=== PATIENT | male | born 1960 | race Caucasian/White ===

== ENCOUNTER → 2024-06-11 11:21 | Outpatient (REF) | payer OTHER, SELFPAY | LOC: HWRCS 11:21 | PROVIDERS: ATTENDING PHYSICIAN Student in an Organized Health Care Education/Training Program; FAMILY PHYSICIAN Family Medicine | DX: R01.1 Cardiac murmur, unspecified (principal) | CPT/HCPCS: 93306 ==

== ENCOUNTER → 2024-06-26 06:50 | Day surgery (SDC) | payer OTHER, SELFPAY ==
[2024-06-26 07:57] VITALS: BMI 22.4
== END ==
LOC: CATH 06:50
PROVIDERS: ATTENDING PHYSICIAN Internal Medicine Cardiovascular Disease; FAMILY PHYSICIAN Family Medicine; OTHER PHYSICIAN Student in an Organized Health Care Education/Training Program
DX: I34.0 Nonrheumatic mitral (valve) insufficiency (principal); E78.5 Hyperlipidemia, unspecified; Q21.12 Patent foramen ovale; Z87.891 Personal history of nicotine dependence
CPT/HCPCS: 93312; 93320; 93325

== ENCOUNTER 2024-07-11 06:11 | Day surgery (SDC) | payer OTHER, SELFPAY ==
[2024-07-11] VITALS (11 sets, daily range): BP systolic 130–155; BP diastolic 82–120; BMI 23.0
--- NOTE | 2024-07-11 18:00 | ITS.CL.PN ---
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
Procedure
Procedure Note:
CARDIAC CATHETERIZATION REPORT
Date of Procedure: 07-11-2024
Referring: Dr. Sanya Hurst MD
Indication: Preop evaluation for MVR
PROCEDURE(S)
1. left heart catheterization
2. coronary angiography
ACCESS: 6F right radial artery (closure: radial band)
CATHETERS
1. 6F JL3.5
2. 6F JR4
HEMODYNAMIC DATA
LV 115/8 (EDP 17) mmHg
AO 113/75 (mean 88) mmHg
CORONARY ANGIOGRAPHY
Dominance: right
LM: Large, normal
LAD: Large vessel giving rise to a moderate caliber D1, moderate caliber D2, and small D3. There is no coronary artery disease.
LCx: Large vessel giving rise to a large OM1, small OM2, small OM3, and large LPL branch. There is no coronary artery disease.
RCA: Large vessel giving rise to a large RPDA and moderate caliber RPL1. There is no coronary artery disease.
RADIATION: dose 218 mGy; DAP 16.7 Gy*cm2; fluoroscopy time 3.3 min
CONCLUSIONS
1. no coronary artery disease in a right dominant system.
2. mildly elevated LV filling pressure with no gradient across the aortic valve.
RECOMMENDATIONS
1. expectant management after cardiac catheterization via right radial approach
2. proceed with workup for MVR
3. primary prevention of coronary artery disease
Copy to: Dr. Sanya Hurst MD (cardiothoracic surgeon); Dr. Torey Cotto MD (PCP)
Signed: Barrera Johnson MD, PhD
== END 2024-07-11 11:45 | disposition home or self-care (01) ==
LOC: CATH 06:11
PROVIDERS: ATTENDING PHYSICIAN Student in an Organized Health Care Education/Training Program; FAMILY PHYSICIAN Family Medicine; OTHER PHYSICIAN Student in an Organized Health Care Education/Training Program
DX: I34.0 Nonrheumatic mitral (valve) insufficiency (principal); E78.00 Pure hypercholesterolemia, unspecified; Z87.891 Personal history of nicotine dependence
CPT/HCPCS: 93458; C1769; C1894; Q9967

== ENCOUNTER → 2024-07-14 07:45 | Outpatient (REF) | payer OTHER, MEDICARE, SELFPAY | LOC: RAD 07:45 | PROVIDERS: ATTENDING PHYSICIAN Thoracic Surgery (Cardiothoracic Vascular Surgery); FAMILY PHYSICIAN Family Medicine | DX: Z01.810 Encounter for preprocedural cardiovascular examination (principal); I34.0 Nonrheumatic mitral (valve) insufficiency | CPT/HCPCS: 71275; 74174; Q9967 ==

== ENCOUNTER 2024-07-15 05:02 | Inpatient (IN) | payer OTHER, MEDICARE, SELFPAY ==
[2024-07-04 08:07] VITALS: BMI 23.2
[2024-07-04 08:50] LABS: Urine Albumin Negative (Neg - Trace); Urine Bilirubin Negative (Negative); Urine Character Clear (Clear); Urine Color Yellow; Urine Glucose Negative (Negative); Urine Ketone Negative (Negative); Urine Leukocyte Trace (Negative); Urine Nitrite Negative (Negative); Urine Occult Blood Negative (Negative); Urine Urobilinogen Negative (Neg - 1+)
[2024-07-04 08:54] LABS: % Basophils 0.7 % (0-2); % Eosinophils 1.5 % (0-6); % Immature Granulocytes 0.2 % (0-0.5); % Lymphocytes 37.3 % (20.5-51.1); % Monocytes 9.3 % (1.7-9.3); Absolute Eosinophils 0.1 10^3/uL (0-0.7); Absolute Lymphocytes 2.2 10^3/uL (1.2-3.4); Absolute Monocytes 0.6 10^3/uL (0.1-0.6); Absolute Neutrophils 3.1 10^3/uL (1.4-6.5); Hematocrit 42.7 % (39.0-52.0); Hemoglobin 14.8 g/dL (13.0-18.0); Mean Corp Hgb Conc. 34.7 g/dL (33.0-37.0); Mean Corpuscular Hgb 31.8 pg (27.0-31.0); Mean Corpuscular Volume 91.6 fL (80.0-94.0); Mean Platelet Volume 10.3 fL (7.4-10.4); Nucleated Red Blood Cells % 0 % (-); Platelet Count 200 10^3/uL (130-400); Red Blood Cell Count 4.66 10^6/uL (4.70-6.10); Red Cell Dist. Width 12.9 % (11.5-14.5)
[2024-07-04 08:57] LABS: INR 0.87; PT 12.2 Sec (11.4-14.6)
[2024-07-04 08:58] LABS: APTT 26.9 Sec (23.4-35.0)
[2024-07-04 09:07] LABS: ALT (SGPT) 32 U/L (0-50); AST (SGOT) 27 U/L (17-59); Albumin 4.7 g/dl (3.5-5.0); Alkaline Phosphatase 64 U/L (38-126); Blood Urea Nitrogen 19 mg/dl (9-20); Carbon Dioxide 28 mmol/L (22-30); Chloride 102 mmol/L (98-107); Direct Bilirubin 0.1 mg/dl (0.0-0.4); Estimated Creatinine Clearance 72 ml/min; Glucose 101 mg/dl (70-99); Potassium 4.3 mmol/L (3.5-5.1); Sodium 139 mmol/L (135-145); Total Bilirubin 0.8 mg/dl (0.2-1.3); eGFR > 60.00
--- NOTE | 2024-07-04 09:30 | CM ---
Chart reviewed. Met with the patient and his in PAT. Reviewed preoperative and postoperative instructions and restrictions, along with showering guidelines. Gave patient 2 soaps. Patient is agreeable to a visit by CT Transitional RN.
Patient is independent of ADLS, lives with his in a 2 S[place], 2 [place], 0 DME. Plan is for the patient to return home with CT Transitional RN.
[2024-07-04 09:47] LABS: Urine Squamous Cell 0-2 /LPF (Few)
[2024-07-04 09:48] LABS: Urine Amorphous Seen; Urine Urothelial Cell 0-2 /LPF (FEW)
[2024-07-04 09:49] LABS: Urine Red Blood Cell 0-2 /HPF (0-2)
[2024-07-04 10:02] LABS: Glycohemoglobin (HgbA1c) 5.1 % (4.0-5.6)
[2024-07-15] VITALS (46 sets, daily range): BP systolic 75–158; BP diastolic 53–90; PULSE 2–82; BMI 22.9
[2024-07-15] MEDS: LOPRESSOR 25 MG PO (05:23)
[2024-07-15] MEDS: BACTROBAN 2% OINTMENT 1 APPLIC NASAL ×2 (05:23→21:24)
[2024-07-15] MEDS: MAGNESIUM OXIDE 500 MG PO (05:23)
[2024-07-15] MEDS: PROTONIX 40 MG PO (05:23)
--- NOTE | 2024-07-15 05:30 | PTCARENOTE ---
pt admitted into room 2263. VS and weight obtained. pt confirms 2 showers @ home and NPO since midnight. admission questions and med rec completed. ABO drawn and sent. clip prep and CHG cloth bath done. pre-op meds given. @ bedside.
--- NOTE | 2024-07-15 06:03 | W.CVOR.SURPR ---
CVOR Surgeon Immed Pre Op
-
I have examined this patient prior to performance of the scheduled procedure.
The patient's condition is unchanged from the time of the dictated/written History and
Physical and the patient is able to undergo the scheduled procedure.
MV repair, PFO closure, +/- RAJWINDER Clip
[2024-07-15 07:16] LABS: ACT+ - POC 107 Seconds (82-134)
[2024-07-15 07:50] LABS: Urine Albumin Negative (Neg - Trace); Urine Bilirubin Negative (Negative); Urine Character Clear (Clear); Urine Color Straw; Urine Glucose Negative (Negative); Urine Ketone Negative (Negative); Urine Leukocyte Negative (Negative); Urine Nitrite Negative (Negative); Urine Occult Blood Negative (Negative); Urine Specific Gravity 1.015 (<1.030); Urine Urobilinogen Negative (Neg - 1+)
--- NOTE | 2024-07-15 09:16 | CM ---
pt in OR today, cm to follow
[2024-07-15 09:23] LABS: B.E. - POC 1.2 mmol/L; Glucose - POC 104 mg/dl (70-99); HCO3 - POC 26 mmol/L (21-28); Hematocrit - POC 38 % PCV (42-52); Hemodilution- POC Yes; Hemoglobin Calculated - POC 12.8; Ionized Calcium - POC 1.24 mmol/L (1.15-1.33); PCO2 - POC 38 mmHg (35-48); PO2 - POC 545 mmHg (83-108); POC Comment PRE; Potassium - POC 3.4 mmol/L (3.5-5.1); Sodium - POC 143 mmol/L (136-145); Specimen Type - POC Arterial; pH - POC 7.43 (7.35-7.45)
[2024-07-15 09:55] LABS: B.E. - POC 2.1 mmol/L; Glucose - POC 224 mg/dl (70-99); HCO3 - POC 27 mmol/L (21-28); Hematocrit - POC 32 % PCV (42-52); Hemodilution- POC Yes; Hemoglobin Calculated - POC 10.9; Ionized Calcium - POC 1.09 mmol/L (1.15-1.33); O2 Saturation %Calculated-POC 99.8 % (94-98); PCO2 - POC 45 mmHg (35-48); PO2 - POC 215 mmHg (83-108); POC Comment CPB; Potassium - POC 5.3 mmol/L (3.5-5.1); Sodium - POC 138 mmol/L (136-145); Specimen Type - POC Arterial
[2024-07-15 10:15] LABS: ACT+ - POC 995 Seconds (82-134)
[2024-07-15 10:18] LABS: B.E. - POC 0.9 mmol/L; Glucose - POC 202 mg/dl (70-99); HCO3 - POC 27 mmol/L (21-28); Hematocrit - POC 41 % PCV (42-52); Hemodilution- POC Yes; Hemoglobin Calculated - POC 13.8; Ionized Calcium - POC 1.17 mmol/L (1.15-1.33); O2 Saturation %Calculated-POC 97.9 % (94-98); PCO2 - POC 50 mmHg (35-48); PO2 - POC 110 mmHg (83-108); POC Comment CPB; Potassium - POC 4.2 mmol/L (3.5-5.1); Sodium - POC 140 mmol/L (136-145); Specimen Type - POC Arterial; pH - POC 7.35 (7.35-7.45)
[2024-07-15 10:43] LABS: ACT+ - POC 896 Seconds (82-134)
[2024-07-15 10:55] LABS: B.E. - POC -2.8 mmol/L; Glucose - POC 143 mg/dl (70-99); HCO3 - POC 25 mmol/L (21-28); Hematocrit - POC 41 % PCV (42-52); Hemodilution- POC Yes; Hemoglobin Calculated - POC 13.9; O2 Saturation %Calculated-POC 99.9 % (94-98); PCO2 - POC 55 mmHg (35-48); PO2 - POC 315 mmHg (83-108); POC Comment WARM; Potassium - POC 4.3 mmol/L (3.5-5.1); Sodium - POC 142 mmol/L (136-145); Specimen Type - POC Arterial; pH - POC 7.27 (7.35-7.45)
[2024-07-15 11:04] LABS: ACT+ - POC 131 Seconds (82-134)
[2024-07-15 11:08] LABS: B.E. - POC -1.5 mmol/L; Glucose - POC 98 mg/dl (70-99); HCO3 - POC 24 mmol/L (21-28); Hematocrit - POC 34 % PCV (42-52); Hemodilution- POC Yes; Hemoglobin Calculated - POC 11.7; Ionized Calcium - POC 1.39 mmol/L (1.15-1.33); PCO2 - POC 44 mmHg (35-48); PO2 - POC 95 mmHg (83-108); POC Comment POST; Potassium - POC 3.9 mmol/L (3.5-5.1); Sodium - POC 142 mmol/L (136-145); Specimen Type - POC Arterial; pH - POC 7.35 (7.35-7.45)
--- NOTE | 2024-07-15 11:28 | W.PN.CT.SURG ---
CT Surgery Operative Note
-
CARDIAC SURGERY OPERATIVE REPORT
Preoperative Diagnosis: Myxomatous mitral valve degeneration with severe insufficiency
Postoperative Diagnosis: Same
Procedure(s) Performed:
1. Right mini thoracotomy with left femoral artery and right femoral vein cannulation under LOLLY guidance (initial attempt at percutaneous right common femoral artery cannulation but unable to thread the wire and so this was aborted)
2. Radical mitral valve repair (34 mm band annuloplasty, triangular resection of P2 flail segment, single [place]-Pee suture placed to reinforce the P2 scallop)
3. Placement temporary ventricular pacing wires
4. Trans esophageal echocardiography
5. Left atrial appendage exclusion [35 mm clip]
6. PFO [ASD] closure done primarily
7. Anesthesia regional block performed preoperatively
Date of Surgery: 07/15/24
Comorbidities:
1. 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
2. Gout
3. Hyperlipidemia
4. Colonic polyp
Attending Surgeon: Sanya Hurst MD, MS
Assistants: Sepideh Duong PA-C (present and necessary for retraction, suctioning, exposure, suture management, wound closure, etc. under my direction)
Anesthesiology: Jatinder Baxter MD and Constantin Torres CRNA
Scrub and Circulating RNs: Dorys Tello RN, Nathan Christianson RN
Roofer Apprentice: Sepideh Hull CCP
Anesthesia: GETA
EBL: per perfusion records
Products: None
CPB Time: 94 minutes
Aortic Cross Clamp Time: 74 minutes
Indication(s) for Procedures: This is an otherwise healthy 64-year-old male who underwent a cardiology workup for a murmur. On closer inspection with a transesophageal echocardiogram he had a flail segment with multiple torn cords of his posterior
leaflet as well as some prolapse of the P2 scallop. This resulted in severe mitral valve insufficiency that was eccentric scarring along the anterior leaflet. Although he was asymptomatic, he desired to have his valve corrected and understood that
he was a IIa indication. Informed consent was obtained to proceed with surgery.
Mitral Valve Description: Significant prolapse of the P2 scallop with annular dilatation. There was a flail segment with multiple torn cords at the free margin of the P2 scallop.
Implants:
1. 34 mm Smith physio flex annuloplasty band, SN [id number]
2. 35 mm pro V clip, serial #[id number]
3. CV 4 Goretex
4. Multiple 5-0 Prolenes
Specimen:
1. P2 scallop flail segment
Findings: His left ventricular ejection fraction preoperatively 65% with no significant regional wall motion abnormalities. His LV was mildly dilated, his left atrium was moderately dilated, his mitral valve had severe insufficiency with a very
large piece of over 1 cm with an eccentric jet directed towards the anterior leaflet with a large Coanda effect. Following surgery his EF remained the same at 65% with no significant new regional wall motion abnormalities. His mitral valve was
repaired with a 34 band annuloplasty secured into place with 13 nonpledgeted 2 Ethibond sutures with core knots. The P2 scallop was resected in a triangular fashion and reapproximated with multiple interrupted 5-0 Prolene. A single CV 4 [place]-Pee
cord was placed from the posterior medial papillary muscle head to the free margin of the remaining P2 scallop. Dynamic inflation and pressurization of the left ventricle revealed good coaptation height and no residual mitral valve insufficiency.
With the left atrial lift removed, the left atrial appendage was viewed across the transverse sinus and sized to a 35 mm clip which was deployed flush to the base. At the conclusion of the case off cardiopulmonary bypass there is no residual left
atrial appendage flow, his mitral valve had no residual insufficiency, the mean gradient across the mitral valve was 1 mmHg, and he had no systolic anterior motion of the leaflets. He had trace aortic valve insufficiency which was there
preoperatively. He did not require any inotropic support, cardiac index was well over 2 on low-dose Levophed. No blood products were given
Description of Procedure: The patient was brought to the operating room and placed supine in the table with their right side bumped up and right arm down. Arterial and central access was performed by anesthesiology. The patient was prepped from chin
to toes in the typical sterile fashion. Trans esophageal evaluation of cardiac function and all valvular structures was conducted. Before commencing, a time out was performed by all members of the team. All were in agreement with the procedure and
laterality and I proceeded. I initially attempted to obtain ultrasound-guided Seldinger technique access to the right common femoral artery which was successful. However after deployment of the Perclose and placement of the 8 Maori sheath, we
lost access to this groin and so the Perclose's were deployed and cinched down. The right common femoral vein was accessed percutaneously without issues. A small left groin incision was made to expose the common femoral artery. A total of
40,000units of heparin was given. A 5-6 cm right lateral thoracotomy was performed over the 4th intercostal space verified by visualization of the hilum. The common femoral artery and vein were cannulated under transesophageal guidance using open
Seldinger technique. The arterial line was verified to have an appropriate bounce and pressure correlating with testing. Once the ACT was above 400, retrograde autologous priming was done and we commenced cardiopulmonary bypass. Target core
temperature was 34�C.
Carbon dioxide was used to flood the field. The course of the phrenic nerve was identified to prevent injury. The pericardium was opened and two stay sutures were placed to facilitate a ``pericardial table.�� The oblique sinus was developed followed
by the inter atrial groove. An antegrade root vent was inserted and secured with a pursestring suture. The pump flow and mean arterial pressure were lowered and an aortic cross clamp was applied to the ascending aorta. A total of 1.2L initial dose
of Antegrade cardioplegia was delivered. We had rapid electro myocardial quiescence at 250 cc of cardioplegia. The ventricle was monitored for distension by echocardiogram during this time. The left atrium was incised and enlarged. A left atrial
lift retractor was placed. The mitral valve was inspected. The mitral valve was repaired as described above. At this point the left atrial lift was removed and the left atrial appendage was viewed across the transverse sinus and clipped with a 35mm
clip. The left atriotomy was closed with 3-0 prolene in a running fashion leaving a ventricular vent in place to de-air. After filling the heart, the vent was removed and the prolene was secured with a corknot. Unipolar ventricular pacing wire was
placed on the base of the right ventricle. The patient was placed into Trendelenburg position and pump flows were lowered. The clamp was slowly removed with the root vent turned on. De-airing maneuvers were performed. We started to rewarm with a
target of 36.5�C.
As the heart recovered, the mitral valve and ventricular function were assessed under transesophageal echocardiogram. The LV vent and root vents were removed. Once weaning parameters were satisfactory, cardiopulmonary bypass flow was lowered until
we were off cardiopulmonary bypass the mitral valve was inspected again. All surgical sites were inspected for hemostasis and appeared appropriate. The lines were clamped and the arterial was relocated to the venous cannula to give back volume. A
test dose of protamine was delivered and patient was monitored for any adverse reactions followed by complete protamine dosing. The femoral vessels were decannulated and repaired as indicated. One 19F Vinh drain remained in the pleural space and
threaded into the pericardium. There was an excellent palpable distal to the FACTORY HAND cannulation site and the pedal pulses were verified under Doppler. Local analgesia was injected to the thoracotomy. The incision was closed in layers in a running
fashion.
All instrument, sponge, and needle counts were confirmed to be correct x 2 at the end of the operation. The patient was transferred to the cardiac intensive care unit, extubated, in critical but stable condition.
I, Dr. Sanya Hurst, was present, scrubbed for, and performed all critical elements of this procedure.
Sanya Hurst MD, MS
Cardiothoracic Surgeon
[facility]
This dictation was created using the [employer] dictation system. Please excuse any grammatical, typographical, or 'sound alike' errors
--- NOTE | 2024-07-15 11:45 | PTCARENOTE ---
Dayshift: Received pt to CVICU @ 1145 pt extubated, on insulin, levo, and precedex. MVR with RAJWINDER clip. [place] @ 47. A-wires present but not connected. L radial A-line zeroed and calibrated. R plueral c/t draining serosanguineous fluid, WNL. Lungs
clear, diminished in bases. Pt placed on BiPap for low inspiration. NSR on monitor HR 80's, B/P 94/65. Pulses palpable, - edema. Hypoactive BS, Shepard draining clear yellow fluid WNL. Right Chest incision approximated with sternal glue present. R
groin retention suture in place. no edema or ecchymosis noted. L groin incision approximated. Sternal glue present.
--- NOTE | 2024-07-15 11:54 | W.PN.UPDATE ---
Update Note
Progress Note Update
64-year-old male was electively admitted on 07/15/2024 for mitral valve repair due to severe non-rheumatic MR.
IV fluids: 1200
Blood:� none
Wires:� v-wire
Inotropes:� none
Pressors:� Levophed @ 4
Sedatives:� none
�
NEURO: somnolent, extubated in OR, pupils +2mm B/L
RESP: Clear BS B/L. 2 mediastinal (0cc on arrival) chest tubes to -20cm suction.
CV: RRR +S1, S2, no S3, no�rub, no murmur. Dermabond to right anterior mini-thoracotomy. RIJ w/[place] locked @ 47cm. PA ; CVP 7
ABD: round, soft, no BS
EXT: no edema, +2/4 DP pulses B/L, no femoral bruit, left radial A-line intact, Perclose to right femoral artery-no hematoma, Left femoral cannulation site intact w/o hematoma
: Shepard with clear yellow urine
�
A/P: POD #0 s/p radical mitral valve repair (#34 mm band annuloplasty, triangular resection of P2 flail segment, single [place]-Pee suture placed to reinforce the P2 scallop), left atrial appendage exclusion [#35 mm clip], primary PFO [ASD] closure
LOLLY: report pending
- will need instruction regarding antibiotic prophylaxis for dental and invasive procedures
- cut pacing wires if no pacing requirements on POD #3
# Acute hypercarbic respiratory failure (CO2 65) s/p extubation in OR
- BPAP (/), wean to nasal cannulae as awakens
�
# acute surgical blood loss anemia-expected
- trend CBC
�
# Hyperlipidemia
- resume�Lipitor 20mg daily
[2024-07-15 11:57] LABS: Glucose - Point of Care 109 mg/dl (70-99)
[2024-07-15 12:02] LABS: Hematocrit 35.4 % (39.0-52.0); Hemoglobin 12.2 g/dL (13.0-18.0); Platelet Count 142 10^3/uL (130-400)
[2024-07-15 12:04] LABS: B.E. -2.3 mmol/L; HCO3 26.6 mmol/L (21-28); Ionized Calcium 1.39 mMOL/L (1.15-1.33); O2 Saturation % 98.8 % (94-98); PCO2 65 mmHg (35-48); PO2 104 mmHg (83-108); Potassium 3.8 mMOL/L (3.5-5.1); Sodium 138 mMOL/L (136-145); pH 7.22 (7.35-7.45)
[2024-07-15 12:07] LABS: Mixed Venous O2 Saturation 81.7 %
--- NOTE | 2024-07-15 12:12 | CON.INTV ---
Consultation
Consultation Request
Date/Time Consultation Requested: 07/15/2024
Date/Time Consultation Performed: 07/15/2024
Requesting Provider: Dr. Hurst
Performing Provider: Dr. Eb Fitzpatrick
Reason for Consultation: Status post mitral valve repair
Medical History
-
History of Present Illness:
64-year-old man with past medical history noted significant for severe MR, evaluated in the outpatient and he was deemed candidate for repair. Underwent mitral valve repair on 07/15/2024 without complication.
ECW records reviewed.
Patient tolerated surgery. Currently on noninvasive mechanical ventilation. Alert, following commands.
Hemodynamically relatively stable on low-dose Levophed.
Chest tube in place without significant output or air leak.
Past Medical History
Past Medical History: Other (See assessment and plan)
Social History
Tobacco: Non-smoker
Alcohol: None
Drug: None
Family History
Family History: Unable to Obtain
Allergies / Home Medications
Allergies
Allergy/AdvReac Type Severity Reaction Status Date / Time
No Known Allergies Allergy Verified 07/11/24 07:06
Home Medications
�Medication �Instructions �Recorded �Confirmed �Last Taken �Type
atorvastatin 40 mg tablet 20 mg PO DAILY 06/26/24 07/15/24 07/14/24 09:00 History
cholecalciferol (vitamin D3) 50 50 mcg PO DAILY 06/26/24 07/15/24 07/10/24 06:00 History
mcg (2,000 unit) capsule (Vitamin
D3)
Review of Systems
-
Unable to Obtain full review of systems at this time due to: Patient Intubation
Vitals / Labs / Diagnostic Testing
Vital Signs
Pulse Resp BP Pulse Ox
64 17 127/89 100
07/15/24 05:04 07/15/24 05:04 07/15/24 05:04 07/15/24 05:04
Laboratory Results
07/15/24
11:50
pH 7.22 L
pCO2 65 H
pO2 104
HCO3 26.6
O2 Delivery Level
Diagnostic Testing:
Physical Exam
-
HEENT: Normocephalic
Cardiovascular: S1/S2
Respiratory: Clear and Other (Chest tube in place without early or excessive drainage)
GI: Soft and Non Distended
Neurology: Other (Sedated, on mechanical ventilator)
Skin: Warm
General: Comfortable
Assessment
-
64-year-old man with past medical history noted, admitted to the hospital for mitral valve repair. Underwent on 07/15/2024 without complications. Patient transferred to the critical care unit we were consulted for postoperative management.
Status post radical mitral valve repair Dr. Hurst 07/15/2024
Left atrial appendage exclusion
Primary closure of PFO
Conditions present prior admission:
Severe mitral insufficiency
Gout
Hyperlipidemia
History of colon polyps
Assessment and plan
He doing well postop-currently on mechanical ventilation and appears comfortable.
ABG reviewed:
Continue BiPAP while sedation wears off.
Can transition to supplemental oxygen once mental status improves.
Currently coughing on demand, following simple commands.
Anemia noted-no evidence of acute bleeding
Follow H&H serially
Hemodynamics -acceptable on low-dose Levophed
Follow hemodynamics, arterial line and PA catheter in place
Follow renal function
Shepard in place
Chest tube with no excessive drainage-no air leak.
Chest x-ray reviewed: With no pneumothorax or fluid collections.
Remain nothing by mouth
Head of the bed elevation
Glycemic control per protocol
DVT prophylaxis when safe from the surgical perspective.
Critical care statement: A total of 32 minutes of critical care time was provided for this patient today. This includes management of unstable vital signs, evaluation of the patient at bedside, reviewing the patient's pertinent medical records
including ventilator settings, arterial blood gases, radiographs, microbiology, laboratory evaluations and discussion with primary team, critical care nursing, and respiratory therapy.
[2024-07-15 12:23] LABS: Blood Urea Nitrogen 17 mg/dl (9-20); Estimated Creatinine Clearance 71 ml/min; Glucose 95 mg/dl (70-99); Magnesium 2.8 mg/dl (1.6-2.3)
[2024-07-15] MEDS: ANCEF 10 IV ×2 (12:26)
[2024-07-15] MEDS: KCL 50 IV (12:26)
[2024-07-15] MEDS: NSS 500 IV (12:30)
[2024-07-15] MEDS: LIPITOR PO (12:32)
[2024-07-15] MEDS: NEURONTIN PO ×2 (12:32→17:21)
[2024-07-15 12:39] LABS: APTT 29.2 Sec (23.4-35.0); INR 1.37; PT 17.4 Sec (11.4-14.6)
[2024-07-15 12:52] LABS: Glucose - Point of Care 110 mg/dl (70-99)
[2024-07-15] MEDS: LR 250 ML IV ×3 (14:00→15:52)
[2024-07-15 14:08] LABS: Glucose - Point of Care 115 mg/dl (70-99)
--- NOTE | 2024-07-15 14:10 | W.PN.CD ---
Today's Communication / Plan
-
routine post op care per CTS.
Impression / Plan
-
Severe mitral regurgitation - s/p right mini thoracotomy for mitral valve repair by Dr. Hurst today.
- 34mm band annuloplasty, resection of P2 flail segment.
- s/p RAJWINDER exclusion 35mm clip.
- stable, post-op management per CTS.
HTN - stable BP post-op, monitor.
HLD - stable on Lipitor, continue.
Physical Exam
Vital Signs/Labs
Vital Signs
Temp Pulse Resp BP Pulse Ox
98.6 F 79 11 116/80 100
07/15/24 14:00 07/15/24 12:45 07/15/24 12:45 07/15/24 12:04 07/15/24 13:49
07/14/24 07/15/24 07/16/24
06:59 06:59 06:59
Actual Weight 166 lb 3.657 oz
07/15/24 11:50
PT 17.4 Sec (11.4-14.6) H 07/15/24 11:50
INR 1.37 07/15/24 11:50
APTT 29.2 Sec (23.4-35.0) 07/15/24 11:50
Magnesium 2.8 mg/dl (1.6-2.3) H 07/15/24 11:50
Physical Exam
Constitutional: No acute distress and Comfortable
EENT: Anicteric and Moist mucous membranes
Cardiovascular: Rhythm & rate is regular
Respiratory: Respiratory effort normal
GI: Soft, Non tender and Normal bowel sounds
Neuro/Psych: AO x 3
Other: Skin (warm, dry)
Data Reviewed
-
Date of Service: July 15, 2024
EKG: Tracing Personally Visualized and interpreted
Echo: Report Reviewed by me
Labs: Labs Reviewed by me
Old Records: Reviewed
[2024-07-15 14:28] LABS: B.E. -0.6 mmol/L; HCO3 20.5 mmol/L (21-28); Ionized Calcium 1.23 mMOL/L (1.15-1.33); O2 Saturation % 99.8 % (94-98); PCO2 24 mmHg (35-48); PO2 184 mmHg (83-108); Potassium 4.4 mMOL/L (3.5-5.1); pH 7.54 (7.35-7.45)
[2024-07-15 15:04] LABS: Glucose - Point of Care 146 mg/dl (70-99)
[2024-07-15 15:07] LABS: ACT+ - POC > 1003 Seconds (82-134)
[2024-07-15 15:07] LABS: ACT+ - POC > 1003 Seconds (82-134)
[2024-07-15] MEDS: DILAUDID 0.5 MG IV (15:17)
--- NOTE | 2024-07-15 15:49 | SUR.OPER ---
VSS. PT AAOx4, no neuro deficits noted. Strength equal bilaterally. NSR on monitor. HR 78, B/P 115/75 (87). Pt continues on LEVO. Pt place on 6L O2 NC. POX 100% Pt remains in bed. will continue to monitor pt needs.
[2024-07-15 16:04] LABS: Glucose - Point of Care 140 mg/dl (70-99)
[2024-07-15] MEDS: TYLENOL PO (16:25)
[2024-07-15] MEDS: OFIRMEV 100 IV (16:29)
[2024-07-15 17:00] LABS: Glucose - Point of Care 130 mg/dl (70-99)
[2024-07-15 17:19] LABS: Hematocrit 32.1 % (39.0-52.0); Hemoglobin 11.4 g/dL (13.0-18.0); Platelet Count 154 10^3/uL (130-400)
[2024-07-15] MEDS: PACERONE PO (17:21)
[2024-07-15] MEDS: LOW STRENGTH ASPIRIN 81 MG PO (17:21)
[2024-07-15 18:55] LABS: Glucose - Point of Care 173 mg/dl (70-99)
--- NOTE | 2024-07-15 19:00 | PTCARENOTE ---
assumed care of patient @ 1900. received pt laying in bed, Aox3. drowsy but awakens easily.NSR on tele HR 70s. A wire present set to AAI 50,10. BP 110s/60s map 70s on 2 of levo. + Pulses throughout, no edema noted. Lungs clear, diminished in the
bases satting 100 percent on 6L NC. IS 2000. coughing and deep breathing encouraged. R pleural chest tube to wall suction with serosang drainage. no air leak, tidaling or crepitus noted. Belly soft, hypoactive BS. castellanos present draining clear
yellow urine good amount. 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 R fem retention suture in place, L fem puncture site intact. L radial A line, R IJ cordis with swan at 47. Central lines zeroed, flushed. Recieved with levo at 2 , insulin per
protocol. no complaints of pain. Index > 3. resting comfortably with call drummond within reach.
[2024-07-15] MEDS: ANCEF 5 IV (19:57)
[2024-07-15 21:03] LABS: Glucose - Point of Care 156 mg/dl (70-99)
[2024-07-15] MEDS: CALCIUM GLUCONATE 100 IV (21:18)
--- NOTE | 2024-07-15 21:33 | PTCARENOTE ---
BP labile, going from 100s down to 70s. pt getting nausea and cold sweats from this. CTPA ordered 2g CA gluconate to help stabilize BP
[2024-07-15 22:02] LABS: Glucose - Point of Care 120 mg/dl (70-99)
[2024-07-15] MEDS: NEURONTIN 100 MG PO (22:06)
[2024-07-15] MEDS: TYLENOL 1000 MG PO (22:06)
[2024-07-15] MEDS: SENOKOT-S 1 TABLET PO (22:06)
--- NOTE | 2024-07-15 23:00 | PTCARENOTE ---
pt resting comfortably, no change in assessment .
[2024-07-15 23:03] LABS: Glucose - Point of Care 102 mg/dl (70-99)
[2024-07-16] VITALS (16 sets, daily range): BP systolic 99–132; BP diastolic 64–78; BMI 23.0
[2024-07-16 00:11] LABS: Glucose - Point of Care 103 mg/dl (70-99)
[2024-07-16 01:59] LABS: Glucose - Point of Care 100 mg/dl (70-99)
[2024-07-16] MEDS: ANCEF 5 IV ×2 (02:00→11:49)
[2024-07-16] MEDS: ROXICODONE 5 MG PO ×2 (02:00→06:21)
[2024-07-16 02:28] LABS: Hematocrit 33.6 % (39.0-52.0); Hemoglobin 11.6 g/dL (13.0-18.0); Mean Corp Hgb Conc. 34.5 g/dL (33.0-37.0); Mean Corpuscular Hgb 31.7 pg (27.0-31.0); Mean Corpuscular Volume 91.8 fL (80.0-94.0); Mean Platelet Volume 10.6 fL (7.4-10.4); Platelet Count 164 10^3/uL (130-400); Red Blood Cell Count 3.66 10^6/uL (4.70-6.10); Red Cell Dist. Width 12.9 % (11.5-14.5); White Blood Cell Count 13.1 10^3/uL (4.8-10.8)
--- NOTE | 2024-07-16 03:00 | PTCARENOTE ---
labs drawn and sent, law 5 given for pain. no acute change in assessment .
[2024-07-16 03:11] LABS: Blood Urea Nitrogen 20 mg/dl (9-20); Calcium 9.4 mg/dl (8.4-10.2); Carbon Dioxide 24 mmol/L (22-30); Chloride 105 mmol/L (98-107); Estimated Creatinine Clearance 71 ml/min; Glucose 116 mg/dl (70-99); Potassium 4.7 mmol/L (3.5-5.1); Sodium 137 mmol/L (135-145); eGFR > 60.00
--- NOTE | 2024-07-16 03:50 | W.PN.CT ---
Today's Communication / Plan
-
Plan:
-No major issues overnight. Hemodynamically and neurologically intact
-Pt extubated intraop and noted to be drowsy in CVICU with respiratory per ABG, responded to BiPAP
-Weaned off Levophed overnight, remains on insulin gtt per protocol
-Last CI 2.44 U/O since OR 1100mL
-Monitor chest tube output: R pleural 35/70 (may be able to d/c today if no significant drainage when OOB)
-AM cxr is pending
-Cont. current meds (ASA, Amiodarone, Lopressor- will likely hold AM dose, Lipitor
-D/C'd swan and a-line @ 0500
-D/C castellanos catheter @ 0600
-Transfer to [facility] phase today when off insulin gtt per protocol
-Maintain cordis
-Maintain temporary PW (will d/c before discharge home)
-Wean off of O2 as tolerated
-Encourage use of IS
-OOB into chair/Ambulate
-Will repeat echo to re-assess MV repair/LVEF in 1-2 days
Assessment / Plan
-
Assessment:
-S/P Right mini thoracotomy with left femoral artery and right femoral vein cannulation/ Radical mitral valve repair (34 mm band annuloplasty, triangular resection of P2 flail segment, single [place]-Pee suture placed to reinforce the P2 scallop)/Left
atrial appendage exclusion [35 mm clip]/PFO [ASD] closure done primarily, by Dr. Hurst, 07/15/24, pod#1
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
-LVEF 60-65%
-Gout
-Hyperlipidemia
-Colonic polyp
-Diverticulosis
-Former tobacco use
-Acute postop blood loss/Anemia (stable without blood transfusion)
-Acute postop atelectasis
-Acute postop respiratory acidosis
-Acute postop hypovolemia with subsequent hypervolemia
Discussed patient care with: Cardiology, Nursing, Respiratory Therapy, Pharmacy and Care Team
Subjective
Procedure
S/P Right mini thoracotomy with left femoral artery and right femoral vein cannulation/ Radical mitral valve repair (34 mm band annuloplasty, triangular resection of P2 flail segment, single [place]-Pee suture placed to reinforce the P2 scallop)/Left
atrial appendage exclusion [35 mm clip]/PFO [ASD] closure done primarily, by Dr. Hurst, 07/15/24
-
Date of Service: July 16, 2024
Pt c/o incisional pain, otherwise feels well
Objective Data
-
Lab Results
07/16/24 02:09
07/16/24 02:09
PT 17.4 Sec (11.4-14.6) H 07/15/24 11:50
INR 1.37 07/15/24 11:50
APTT 29.2 Sec (23.4-35.0) 07/15/24 11:50
Vital Signs
Vital Signs
Temp Pulse Resp BP Pulse Ox
98.9 F 72 17 109/73 100
07/16/24 01:00 07/16/24 01:30 07/16/24 01:30 07/16/24 01:00 07/16/24 01:30
CT Intake/Output/Weight
07/15/24 07/15/24 07/16/24
06:59 18:59 06:59
Intake Total 1108.1 / 1345.1 237.0 / 1345.1
Output Total 735 / 1025 290 / 1025
Balance 373.1 / 320.1 -53.0 / 320.1
SaO2: 100 (2L)
Physical Exam
-
General: Awake, Oriented and AOx3
Cardiovascular: Regular rate & rhythm, No Murmurs, No Rub and No Gallop
Respiratory: Decreased Breath Sounds
Sternum: Stable
Incision: Clean, Dry, Intact and Dressing Intact
Extremities: Other (+trace edema)
Data Reviewed
-
Lab Results: Results Reviewed
Medications: Active Meds Reviewed
Chest X-Ray: Report Reviewed and Image Reviewed
ECG: Report Reviewed and Image Reviewed
[2024-07-16 04:00] LABS: Glucose - Point of Care 110 mg/dl (70-99)
[2024-07-16 06:06] LABS: Glucose - Point of Care 96 mg/dl (70-99)
[2024-07-16] MEDS: TYLENOL 1000 MG PO ×3 (06:21→20:21)
--- NOTE | 2024-07-16 06:44 | PTCARENOTE ---
pt delined per order. stood to scale and to chair with steady gait. 5 of law given for pain. call drummond within reach .
[2024-07-16 08:32] LABS: Glucose - Point of Care 108 mg/dl (70-99)
[2024-07-16] MEDS: LOW STRENGTH ASPIRIN 81 MG PO (09:13)
[2024-07-16] MEDS: NEURONTIN 100 MG PO ×3 (09:13→20:21)
[2024-07-16] MEDS: LIPITOR 20 MG PO (09:13)
[2024-07-16] MEDS: PACERONE 200 MG PO ×3 (09:13→20:21)
[2024-07-16] MEDS: MAGNESIUM OXIDE 500 MG PO ×2 (09:13→20:21)
[2024-07-16] MEDS: SENOKOT-S 1 TABLET PO ×2 (09:13→20:21)
[2024-07-16] MEDS: PROTONIX 40 MG PO (09:13)
[2024-07-16] MEDS: BACTROBAN 2% OINTMENT 1 APPLIC NASAL ×2 (09:14→20:22)
[2024-07-16] MEDS: LIDOCAINE 4% PATCH 1 PATCH TOPICAL (09:14)
--- NOTE | 2024-07-16 09:25 | PTCARENOTE ---
assumed care of pt from previous shift RN, sinus rhythm on tele, epicardial pacing wire insulated. + peripheral pulses, no edema. Lungs diminished, pox 98% on RA. +bs, tolerating PO intake, DTV. CT removed as ordered. Right lateral surgical site w
surgical glue intact, puncture sites stable. pain controlled. Plan of care reviewed w the pt and questions encouraged.
[2024-07-16 10:09] LABS: Glucose - Point of Care 131 mg/dl (70-99)
[2024-07-16] MEDS: NSS IV (11:49)
--- NOTE | 2024-07-16 12:32 | PTCARENOTE ---
VSS, pt tolerated walking in [place], pain well controlled.
[2024-07-16] MEDS: FERRLECIT 110 MG IV (13:18)
--- NOTE | 2024-07-16 14:04 | W.PN.INTV ---
Today's Communication / Plan
Recommendations
Continue postoperative care
Increase activity as able
Follow H&H
Daily chest x-ray
Analgesia
Telemetry phase
Sign off
Assessment
-
64-year-old man with past medical history noted, admitted to the hospital for mitral valve repair. Underwent on 07/15/2024 without complications. Patient transferred to the critical care unit we were consulted for postoperative management.
Status post radical mitral valve repair Dr. Hurst 07/15/2024
Left atrial appendage exclusion
Primary closure of PFO
Conditions present prior admission:
Severe mitral insufficiency
Gout
Hyperlipidemia
History of colon polyps
Assessment and plan
Doing well postoperative day 1
No significant oxygen requirement
Pain is controlled-continue analgesia with as needed narcotics. Monitor respiratory status closely
Incentive spirometry encouraged
Increase activity as able
-
Anemia noted-no evidence of acute bleeding
Follow H&H serially
Hemodynamics -stable. Off vasopressors
Renal function normal
Adequate urinary output.
Chest tube with no excessive drainage-no air leak.
Chest x-ray 07/16/2024 reviewed: With no pneumothorax or fluid collections.
Remain nothing by mouth
Head of the bed elevation
Glycemic control per protocol
DVT prophylaxis when safe from the surgical perspective.
Patient has been transferred to telemetry. Critical care team will sign off.
Subjective Dataa
Subjective Data
Date of Service:
Date of Service: July 16, 2024
Chief Complaint: Industrial/Organizational Psychologist Follow Up (Status post right minithoracotomy with femoral artery and right femoral vein cannulation/radical mitral valve replacement.)
Subjective:
No significant complaints overnight
Analgesia fairly well-controlled
Denies increased coughing or phlegm production
Review of Systems
Cardiopulmonary: Dyspnea (none at rest)
GI: Abdominal Pain (n) and Nausea (n)
Neuro: Headache (n)
Objective Data
Data Reviewed
Vital Signs / I&O / Oxygen:
Vital Signs
Temp Pulse Resp BP Pulse Ox
98.2 F 69 16 129/74 98
07/16/24 11:12 07/16/24 12:00 07/16/24 11:12 07/16/24 11:12 07/16/24 11:12
Intake and Output
07/15/24 07/16/24 07/17/24
06:59 06:59 06:59
Intake Total 1423.3 / 1423.3 34.6 / 34.6
Output Total 1220 / 1220
Balance 203.3 / 203.3 34.6 / 34.6
SaO2 98
Nasal Cannula flow liters per 2
minute
Physical Exam
General: Comfortable
HEENT: Normocephalic
Cardiovascular: S1-S2
Respiratory: Non-Labored Respirations
GI: Soft and Non Distended
Neurology: Awake, Alert and AO x 3
Skin: Warm
Labs/Micro/Reports
Lab Data
07/16/24 02:09
07/16/24 02:09
Laboratory Results
07/15/24
14:16
pH 7.54 H
pCO2 24 L
pO2 184 H
HCO3 20.5 L
O2 Delivery Level
--- NOTE | 2024-07-16 16:51 | W.PN.ANS.POP ---
Anesthesia Post Operative
- Anesthesia Post Op Note
Vital Signs Stable-See Nursing Note: Yes
Airway Patent: Yes
Adequate Pain Control: Yes
Change in Mental Status: No
Current Postoperative Nausea & Vomiting: No
Anesthesia Complications: No
General Anesthetic Recall: No
Unplanned Admission: No
Post Op Hydration Adequate: Yes
--- NOTE | 2024-07-16 20:00 | PTCARENOTE ---
assumed care of patient @ 1900. recieved pt laying in bed, Aox3. NSR HR 70s, BP stable. +pp, - E. lungs clear on room air sattting high 90s. +BS, passing gas. voiding clear yellow urine in bathroom. 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 R groin retention sutures
intact. Skin tear on L back covered with dry dressing. R IJ cordis and PIV patent. assisted pt to bathroom and back to bed. resting comfortably with call drummond within reach .
[2024-07-17] VITALS (10 sets, daily range): BP systolic 110–132; BP diastolic 65–74; PULSE 73; O2SAT 96–99; BMI 23.2
--- NOTE | 2024-07-17 | PTCARENOTE ---
pt resting comfortably w/o complaints, no change in assessment. call drummond within reach
--- NOTE | 2024-07-17 04:34 | W.PN.CT ---
Today's Communication / Plan
-
Plan:
-No major issues overnight. Hemodynamically and neurologically intact
-Off all drips
-BP has been soft postop. BB has been on hold. Will give trial of low dose BB (Toprol XL 12.5 Qdaily) today
-D/C'd right pleural chest tube yesterday 07/16/24
-AM cxr is looks clear on my review, f/u official report, 2-view cxr scheduled for tomorrow
-Cont. current meds (ASA, Amiodarone, Lopressor- will likely hold AM dose, Lipitor
-Maintain cordis another day
-Maintain temporary PW (will cut before discharge home)
-Groin C/D/I without significant hematoma, will need right groin stitch removed before d/c home
-Wean off of O2 as tolerated
-Encourage use of IS
-OOB into chair/Ambulate
-Will repeat echo to re-assess MV repair/LVEF today
-Home later today vs tomorrow
Assessment / Plan
-
Assessment:
-S/P Right mini thoracotomy with left femoral artery and right femoral vein cannulation/ Radical mitral valve repair (34 mm band annuloplasty, triangular resection of P2 flail segment, single Van-Pee suture placed to reinforce the P2 scallop)/Left
atrial appendage exclusion [35 mm clip]/PFO [ASD] closure done primarily, by Dr. Hurst, 07/15/24, pod#2
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
-LVEF 60-65%
-Gout
-Hyperlipidemia
-Colonic polyp
-Diverticulosis
-Former tobacco use
-Acute postop blood loss/Anemia (stable without blood transfusion)
-Acute postop atelectasis
-Acute postop respiratory acidosis
-Acute postop hypovolemia with subsequent hypervolemia
Discussed patient care with: Cardiology, Nursing, Respiratory Therapy, Pharmacy and Care Team
Subjective
Procedure
S/P Right mini thoracotomy with left femoral artery and right femoral vein cannulation/ Radical mitral valve repair (34 mm band annuloplasty, triangular resection of P2 flail segment, single Van-Pee suture placed to reinforce the P2 scallop)/Left
atrial appendage exclusion [35 mm clip]/PFO [ASD] closure done primarily, by Dr. Hurst, 07/15/24
-
Date of Service: July 17, 2024
Pt c/o mild incisional pain, otherwise feels well
Objective Data
-
PT 17.4 Sec (11.4-14.6) H 07/15/24 11:50
INR 1.37 07/15/24 11:50
APTT 29.2 Sec (23.4-35.0) 07/15/24 11:50
Vital Signs
Vital Signs
Temp Pulse Resp BP Pulse Ox
97.8 F 74 16 125/71 96
07/16/24 20:00 07/17/24 00:00 07/17/24 00:00 07/16/24 23:51 07/17/24 00:00
CT Intake/Output/Weight
07/16/24 07/16/24 07/17/24
06:59 18:59 06:59
Intake Total 315.2 / 1423.3 44.6 / 104.6 60 / 104.6
Output Total 485 / 1220
Balance -169.8 / 203.3 44.6 / 104.6 60 / 104.6
SaO2: 96 (RA)
Physical Exam
-
General: Awake, Oriented and AOx3
Cardiovascular: Regular rate & rhythm, No Murmurs, No Rub and No Gallop
Respiratory: Decreased Breath Sounds (at bases, otherwise clear)
Sternum: Stable
Incision: Clean, Dry, Intact and Dressing Intact
Extremities: No Edema
Data Reviewed
-
Lab Results: Results Reviewed
Medications: Active Meds Reviewed
Chest X-Ray: Report Reviewed and Image Reviewed
ECG: Report Reviewed and Image Reviewed
[2024-07-17 05:27] LABS: Hematocrit 30.3 % (39.0-52.0); Hemoglobin 10.2 g/dL (13.0-18.0); Mean Corp Hgb Conc. 33.7 g/dL (33.0-37.0); Mean Corpuscular Hgb 31.4 pg (27.0-31.0); Mean Corpuscular Volume 93.2 fL (80.0-94.0); Mean Platelet Volume 10.7 fL (7.4-10.4); Platelet Count 144 10^3/uL (130-400); Red Blood Cell Count 3.25 10^6/uL (4.70-6.10); White Blood Cell Count 14.9 10^3/uL (4.8-10.8)
[2024-07-17 05:48] LABS: Blood Urea Nitrogen 19 mg/dl (9-20); Calcium 8.9 mg/dl (8.4-10.2); Carbon Dioxide 27 mmol/L (22-30); Chloride 102 mmol/L (98-107); Estimated Creatinine Clearance 79 ml/min; Glucose 135 mg/dl (70-99); Potassium 4.4 mmol/L (3.5-5.1); Sodium 136 mmol/L (135-145); eGFR > 60.00
[2024-07-17] MEDS: TYLENOL 1000 MG PO (07:25)
--- NOTE | 2024-07-17 07:43 | W.PN.CD ---
Today's Communication / Plan
-
Incentive spirometry.
Ambulation.
Monitor H/H.
Discharge planning.
Impression / Plan
-
Impression/Plan: 64 y/o male HTN, HLD and severe, degenerative mitral valve regurgitation admitted for elective mitral valve repair.
#Severe, eccentric, degenerative mitral valve regurgitation
-Chronic.
-S/P MV repair (#34 Smith physio flex annuloplasty band annuloplasty [SN [id number]], triangular resection of P2 flail segment, single [place]-Pee suture placed to reinforce the P2 scallop) with Dr. Hurst, 07/15/2024.
-S/P prophylactic LAAE (#35 pro V clip, serial #[id number]).
-Routine post operative management.
-Encourage incentive spirometry, ambulation.
-Pain control per CT surgery.
#HTN
-Chronic, stable.
-Start medications as post operative hemodynamics dictate.
#HLD
-Chronic, stable.
-Continue atorvastatin 20 mg daily.
Subjective/Interval History:
No acute events.
Patient ambulated yesterday.
Weight up 0.7 kg, but generally stable from admission.
Hbg 10.4 <-- 11.6.
Physical Exam
Vital Signs/Labs
Vital Signs
Temp Pulse Resp BP Pulse Ox
37.0 C 77 16 118/68 98
07/17/24 07:20 07/17/24 07:15 07/17/24 04:00 07/17/24 07:15 07/17/24 07:20
07/15/24 07/16/24 07/17/24
11:59 11:59 11:59
Actual Weight 75.4 kg 75.8 kg 76.5 kg
07/17/24 04:41
07/17/24 04:41
PT 17.4 Sec (11.4-14.6) H 07/15/24 11:50
INR 1.37 07/15/24 11:50
APTT 29.2 Sec (23.4-35.0) 07/15/24 11:50
Magnesium 2.0 mg/dl (1.6-2.3) 07/17/24 04:41
Physical Exam
Constitutional: No acute distress and Comfortable
EENT: Anicteric and Moist mucous membranes
Cardiovascular: Rhythm & rate is regular, Pedal edema is absent, JVD pressure is normal, S1S2 is normal and Murmur/rub/gallop absent
Respiratory: Respiratory effort normal, Lungs clear to auscul., Wheeze Absent, Crackles Absent and Rhonchi Absent
GI: Soft, Distention absent, Flat, Non tender and Normal bowel sounds
Neuro/Psych: AO x 3
Data Reviewed
-
Date of Service: July 17, 2024
Medical Decision Making: Reviewed Test Results, Independent Historian Assessment and Test Interpretation
EKG: Tracing Personally Visualized and interpreted and Report Reviewed by me
X-Ray/CT/US/MRI/NUC/PET: Image Personally Visualized and interpreted and Report Reviewed by me
Medical Tests (PFT, Pathology etc): Report Reviewed by me
Labs: Labs Reviewed by me
Old Records: Reviewed
[2024-07-17] MEDS: MAGNESIUM OXIDE 500 MG PO (07:46)
[2024-07-17] MEDS: TOPROL XL 12.5 MG PO (07:46)
[2024-07-17] MEDS: NEURONTIN 100 MG PO (07:48)
[2024-07-17] MEDS: PROTONIX 40 MG PO (07:48)
[2024-07-17] MEDS: LOW STRENGTH ASPIRIN 81 MG PO (07:48)
[2024-07-17] MEDS: PACERONE 200 MG PO (07:49)
[2024-07-17] MEDS: SENOKOT-S 1 TABLET PO (07:49)
[2024-07-17] MEDS: BACTROBAN 2% OINTMENT 1 APPLIC NASAL (07:50)
[2024-07-17] MEDS: LIPITOR 20 MG PO (07:50)
[2024-07-17] MEDS: LIDOCAINE 4% PATCH TOPICAL (08:13)
--- NOTE | 2024-07-17 08:35 | PTCARENOTE ---
Patient received from concrete block mason RN. Patient OOB resting comfortably in chair. VSS BP 114/68 HR 76 sinus rhythm POX 97% RA. Patient denies any pain. AO x 3, heart sounds present. Lung sounds diminished at basses. Bowel sounds normoactive in
all 4 quadrants. Radial and pedal pulses strong bilaterally. Electronics Engineering Technician strength equal bilaterally. RIJ cordis and left wrist PIV patent and intact.
--- NOTE | 2024-07-17 08:35 | PTCARENOTE ---
Patient received from concrete truck driver RN. Patient OOB resting comfortably in chair. VSS BP 114/68 HR-
--- NOTE | 2024-07-17 09:27 | PTCARENOTE ---
RIJ cordis removed without incident. Patient lying in bed with call drummond in hand.
--- NOTE | 2024-07-17 10:00 | PTCARENOTE ---
Epicardial pacing wires cut by CT PA.
[2024-07-17] MEDS: LASIX 20 MG IV (10:28)
[2024-07-17] MEDS: NSS IV (10:59)
--- NOTE | 2024-07-17 11:55 | W.DCSUMMARY ---
Discharge Summary
Discharge Data
Date of Admission: 07/15/24
Date of Discharge: 07/17/24
Total time spent discharging patient (in min): 35
-
Pending Results: No
Hospital Course
Primary care physician:
Dr. Torey Cotto
Outpatient field merchandiser:
Dr Muller
Inpatient consultants:
CBC, burnishing machine operator
Procedures:
1. Radical mitral valve repair (34 mm band annuloplasty, triangular resection of P2 flail segment, single [place]-Pee suture placed to reinforce the P2 scallop), LAAC, MAZE, ASD closure
Primary Diagnosis:
1. Myxomatous mitral valve degeneration with severe insufficiency
Secondary Diagnoses:
1. Gout
2. Hyperlipidemia
3. Colonic polyp
4. Acute postop hypovolemia with subsequent hypervolemia
HPI: 64 y/o male presented on 07/15 for a elective mitral valve repair with Dr. Hurst.
Hospital course: Patient was electively admitted on 07/15 for a mitral valve repair with Dr. Hurst. Postoperatively he was extubated in the OR and was temporarily placed on BiPAP for hypercarbia. The remainder of his recovery was in the CVICU.
Initially patient was hypotensive he was given 1 L of lactated Ringer's along with a Levophed infusion. On 07/16 postoperative day 1 patient was weaned off Levophed and beta-blockers were put on hold. Shepard and chest tube was removed. On 07/17
postoperative day 2 patient was started on metoprolol 12.5 daily he tolerated it well. Repeat echocardiogram showed a mean gradient of 5. He was given 40 mg of IV Lasix for some mild fluid retention. Patient was deemed stable for discharge home.
Home medication changes:
see below
Discharge Plan
-
Patient Disposition: Home (Routine Discharge)
Discharge Diagnosis/Procedures: Mitral regurgitation/mitral repair
Condition: Good
Diet: Low Cholesterol and Low Sodium
Activity: No strenuous activity
Driving Restrictions: Not until seen by your Dr
Bathing Restrictions: OK to Shower
Other Services: Cardiac Rehab
Specialty Instructions: Weigh Daily- Call MD for wt gain/loss 3 lbs overnight/5 lbs in 1 week
Activity Restrictions/Additional Instructions:
ACTIVITY:
-No strenuous activity: no heavy lifting, pushing, pulling anything over 15 pounds for one month
-continue to use stairs as tolerated
DRIVING RESTRICTIONS:
-No driving for one month or until approved by your surgeon
WOUND CARE:
-Shower daily. Use soap & water.
-No lotions, creams or powders on incision area.
DIET:
-continue a low fat/low cholesterol diet.
-IF you are diabetic, continue carb controlled diet.
CARDIAC REHAB:
-Please make appointment to start in 5-6 weeks with your local hospital program. (See Cardiac Rehabilitation Discharge Booklet).
SPECIALTY INSTRUCTIONS:
-Weigh yourself daily. Call your physician for any weight gain/loss of 3 lbs overnight or 5 lbs in one week.
-REPORT any clicking noise or uneven appearance of your sternum to your surgeon immediately.
-If you smoke, you are instructed to quit. The [place] smoking hotline phone number is [phone]
Referrals:
CT Transitional Care Nurse [Outside] (The Cardiothoracic Transitional Care Nurse will call you to set up a visit in 1-2 days.)
[facility] [Outside] - 08/19/24 1:00 pm
(Cardiac Rehab Orientation appointment is on 08/19/24 at 1:00 pm
The Cardiac Rehab gym is located on the first floor of the [facility].)
Torey Cotto MD [Family Provider] -
Maude Stanford NP [Specified Professional Personl] - 08/26/24 9:40 am
Sanya Hurst MD [Active] - 08/18/24 1:15 pm
Prescriptions:
New
cyclobenzaprine 10 mg Tablet
5 mg PO Q8HPRN PRN (Reason: muscle spasm) Qty: 30 0RF
acetaminophen 325 mg Tablet
650 mg PO Q4HPRN PRN (Reason: mild pain,headache,temp >101F ) Qty: 0 0RF
metoprolol succinate 25 mg Tablet Extended Release 24 Hr
25 mg PO DAILY Qty: 30 1RF
aspirin 81 mg Tablet,Chewable
81 mg PO DAILY Qty: 0 0RF
gabapentin 100 mg Capsule
100 mg PO TID Qty: 30 0RF
oxycodone 5 mg Tablet
2.5 mg PO Q4HPRN PRN (Reason: Severe pain) Qty: 10 0RF
Continued
atorvastatin 40 mg Tablet
20 mg PO DAILY
cholecalciferol (vitamin D3) [Vitamin D3] 50 mcg (2,000 unit) Capsule
50 mcg PO DAILY
Discharge Orders:
Discharge Patient (As Directed); Ordered 07/17/24
Ordered By: Marilee Sosa
Care Plan Goals
Care Plan Goals:
Problem: Readiness for enhanced knowledge related to diagnosis and treatment plan
Goal: Understand your diagnosis and treatment plan needs, including medications if applicable.
Instructions: Know your diagnosis, underlying causes and treatment plan options, including medications if applicable. Consult with your health care team to learn about your diagnosis and treatment plan, including medications if applicable.
Discharge Date and Time
Print Language: GREENLANDIC
--- NOTE | 2024-07-17 12:07 | W.[place]-PDMP ---
[place]-PD[place]
-
Checked the [place]- Prescription Drug Monitoring Program website, no red flags identified; safe to proceed with prescription.
--- NOTE | 2024-07-17 12:21 | PTCARENOTE ---
Assessed patient. Patient sitting OOB in chair. VSS BP 132/74, HR 81 NSR, POX 98% RA. Patient ambulated in reyes. Lasix given and patient urinating clear yellow urine. Skin tear dressing on left upper back changed.
[2024-07-17] MEDS: FERRLECIT 110 MG IV (12:35)
--- NOTE | 2024-07-17 14:42 | CM ---
CM following for DC planning needs.
Met w/ patient, spouse at bedside.
Pt. for DC to home today. Pt. feels well, is prepared for DC.
Reviewed post-op MD appointments + visit from CT Transitional Care RN.
No further needs noted.
Plan is for home w/ CT RN
[2024-07-17] MEDS: TYLENOL PO (15:20)
--- NOTE | 2024-07-17 15:21 | PTCARENOTE ---
Patient Assessed. Final set of VS obtained. VSS. Removed operative dressings. Patient tolerated shower. Left wrist PIV removed. Reviewed discharge instructions and medications with patient and . Questions encouraged.
== END 2024-07-17 15:40 | disposition home or self-care (01) | DRG 219 ==
LOC: CVICU 05:02
PROVIDERS: Anesthesiology; Nurse Practitioner; ADMITTING PHYSICIAN Thoracic Surgery (Cardiothoracic Vascular Surgery); CONSULT PHYSICIAN Internal Medicine Critical Care Medicine; FAMILY PHYSICIAN Family Medicine
PROC: 02L70CK Occlusion of Left Atrial Appendage with Extraluminal Device, Open Approach (ICD-10-PCS; 2024-07-15)
PROC: 02Q50ZZ Repair Atrial Septum, Open Approach (ICD-10-PCS; 2024-07-15)
PROC: 02BG0ZZ Excision of Mitral Valve, Open Approach (ICD-10-PCS; 2024-07-15)
PROC: 02UG0JZ Supplement Mitral Valve with Synthetic Substitute, Open Approach (ICD-10-PCS; 2024-07-15)
PROC: B24BZZ4 Ultrasonography of Heart with Aorta, Transesophageal (ICD-10-PCS; 2024-07-15)
PROC: 5A1221Z Performance of Cardiac Output, Continuous (ICD-10-PCS; 2024-07-15)
DX: I34.0 Nonrheumatic mitral (valve) insufficiency (principal); I51.1 Rupture of chordae tendineae, not elsewhere classified; J95.821 Acute postprocedural respiratory failure; Q21.12 Patent foramen ovale; D62 Acute posthemorrhagic anemia; J98.11 Atelectasis; E86.1 Hypovolemia; M10.9 Gout, unspecified; E87.70 Fluid overload, unspecified; E78.5 Hyperlipidemia, unspecified; I95.81 Postprocedural hypotension; I10 Essential (primary) hypertension; Y83.2 Surgical operation with anastomosis, bypass or graft as the cause of abnormal reaction of the patient, or of later complication, without mention of misadventure at the time of the procedure; Z79.899 Other long term (current) drug therapy; Z86.0100 Personal history of colon polyps, unspecified; Z87.891 Personal history of nicotine dependence
CPT/HCPCS: 88305; 93308; 36415; 71045; 80048; 80053; 81003; 81015; 82248; 82330; 82565; 82805; 82810; 82947; 82962; 83036; 83735; 84132; 84302; 84520; 85014; 85018; 85025; 85027; 85049; 85610; 85730; 86850; 86900; 86901; 86920; 87070; 93005; 93312; 93320; 93325; 93880; 94660; J2916; P9047

== ENCOUNTER 2024-09-12 13:36 | Outpatient (RCR) | payer MEDICARE, OTHER, SELFPAY | END 2024-09-12 23:59 | disposition home or self-care (01) | LOC: CRHB 13:36 | PROVIDERS: ATTENDING PHYSICIAN Student in an Organized Health Care Education/Training Program | DX: Z95.2 Presence of prosthetic heart valve (principal) | CPT/HCPCS: G0422; G0423 ==

== ENCOUNTER 2024-10-13 14:06 | Outpatient (RCR) | payer MEDICARE, OTHER, SELFPAY ==
[2024-09-24 12:09] LABS: HDL Cholesterol 89 mg/dl; LDL Cholesterol, Calculated 82 mg/dl; Total Cholesterol 196 mg/dl (50-199); Triglyceride 127 mg/dl (10-149); Very Low Density Lipoprotein 25 mg/dl (0-30)
== END 2024-10-13 23:59 | disposition home or self-care (01) ==
LOC: CRHB 14:06
PROVIDERS: ATTENDING PHYSICIAN Internal Medicine Cardiovascular Disease; FAMILY PHYSICIAN Family Medicine; REFERRING PHYSICIAN Student in an Organized Health Care Education/Training Program
DX: Z95.2 Presence of prosthetic heart valve (principal)
CPT/HCPCS: 36415; 80061; G0422; G0423

== ENCOUNTER 2024-11-07 13:59 | Outpatient (RCR) | payer MEDICARE, OTHER, SELFPAY ==
[2024-10-29 14:05] LABS: HDL Cholesterol 89 mg/dl; LDL Cholesterol, Calculated 78 mg/dl; Total Cholesterol 190 mg/dl (50-199); Triglyceride 118 mg/dl (10-149); Very Low Density Lipoprotein 23 mg/dl (0-30)
== END 2024-11-07 23:59 | disposition home or self-care (01) ==
LOC: CRHB 13:59
PROVIDERS: Student in an Organized Health Care Education/Training Program; ATTENDING PHYSICIAN Internal Medicine Cardiovascular Disease; FAMILY PHYSICIAN Family Medicine; REFERRING PHYSICIAN Student in an Organized Health Care Education/Training Program
DX: Z95.2 Presence of prosthetic heart valve (principal)
CPT/HCPCS: 36415; 80061; G0422; G0423

== ENCOUNTER 2024-11-14 13:00 | Outpatient (RCR) | payer MEDICARE, OTHER, SELFPAY | END 2024-11-19 14:06 | disposition home or self-care (01) | LOC: CRHB 13:00 | PROVIDERS: ATTENDING PHYSICIAN Internal Medicine Cardiovascular Disease; FAMILY PHYSICIAN Family Medicine; REFERRING PHYSICIAN Student in an Organized Health Care Education/Training Program | DX: Z95.2 Presence of prosthetic heart valve (principal) | CPT/HCPCS: G0422; G0423 ==

== ENCOUNTER → 2025-01-07 11:10 | Outpatient (REF) | payer MEDICARE, OTHER, SELFPAY | LOC: RCS 11:10 | PROVIDERS: ATTENDING PHYSICIAN Student in an Organized Health Care Education/Training Program; FAMILY PHYSICIAN Family Medicine | DX: Z98.890 Other specified postprocedural states (principal) | CPT/HCPCS: 93306 ==

== ENCOUNTER 2025-06-05 06:26 | Day surgery (SDC) | payer MEDICARE, OTHER, SELFPAY | END 2025-06-05 11:59 | disposition home or self-care (01) | LOC: GI 06:26 | PROVIDERS: ATTENDING PHYSICIAN Internal Medicine Gastroenterology | DX: Z12.11 Encounter for screening for malignant neoplasm of colon (principal); Z80.0 Family history of malignant neoplasm of digestive organs; Z86.0100 Personal history of colon polyps, unspecified; K64.9 Unspecified hemorrhoids | CPT/HCPCS: G0105 ==